=== PATIENT | female | born 1955 | race African-American/Black ===

== ENCOUNTER 2021-07-03 14:29 | Inpatient (IN) ==
[2021-07-03] MEDS ORDERED: 0.9 % Sodium Chloride 1,000 ML IVC ONE (14:31)
[2021-07-03] MEDS ORDERED: Acetaminophen 325 MG TABLET PO ONE (14:54)
[2021-07-03 15:39] LABS: Bacteria,Urine Few per hpf (None-Few); Bilirubin,Urine Negative (Negative); Blood,Urine Large (Negative); Clarity,Urine Ex.Turbid (Clear); Color,Urine Orange (Yellow); Glucose,Urine (UA) >=1000 mg/dL (Normal); Granular Casts,Urine Moderate per lpf (None Seen); Ketones,Urine Negative (Negative); Leukocyte Esterase,Urine Large (Negative); Nitrite,Urine Negative (Negative); Protein,Urine >=300 mg/dL (Neg-Trace); RBC,Urine 15-30 per hpf (0-3); Specific Gravity,Urine 1.018 (1.010-1.025); Urobilinogen,Urine Normal (Normal); WBC,Urine TNTC per hpf (0-3)
[2021-07-03 15:57] LABS: Influenza A PCR Negative (Negative); Influenza B PCR Negative (Negative); Resp. Syncytial Virus PCR Negative (Negative)
[2021-07-03 16:04] LABS: VBG HCO3 21 mEq/L (21-27); VBG PCO2 34 mmHg (41-51); VBG PO2 45 mmHg (25-50)
[2021-07-03 16:05] LABS: Hematocrit 32.6 % (35.3-44.9); Hemoglobin 10.7 g/dL (11.5-15.4); Mean Corpuscular HGB Conc 32.8 g/dL (31.6-35.5); Mean Corpuscular Hemoglobin 27.7 pg (28.0-33.3); Mean Corpuscular Volume 84.5 fL (83.0-100.0); Mean Platelet Volume 11.4 fL (9.4-12.4); Platelet Count 146 K/mcL (140-400); Red Blood Count 3.86 M/mcL (3.82-4.97); Red Cell Distribution Width 12.8 % (11.5-14.5); White Blood Count 14.3 K/mcL (4.3-11.1)
[2021-07-03 16:15] LABS: SARS-CoV-2 by PCR (In House) Negative (Negative)
[2021-07-03 16:26] LABS: Albumin 3.3 g/dL (3.5-5.7); Albumin/Globulin Ratio 0.9 (1.1-2.2); Bilirubin,Direct 0.4 mg/dL (0.0-0.2); Bilirubin,Indirect 0.6 mg/dL (0.0-1.0); Calcium 8.6 mg/dL (8.6-10.3); Globulin 3.8 g/dL (2.4-3.5); Magnesium 1.2 mg/dL (1.6-2.6); Potassium 3.6 mEq/L (3.5-5.1); Total Protein 7.1 g/dL (6.4-8.9)
[2021-07-03 16:40] LABS: Lymphocytes # 1.4 K/mcL (0.6-4.6); Monocytes # 0.9 K/mcL (0.0-1.3); Platelet Estimate Normal (Normal)
[2021-07-03] MEDS: 0.9 % Sodium Chloride 1,000 ML IVC SCH ×3 (17:01→22:02)
[2021-07-03] MEDS ORDERED: Insulin Human Regular 10 UNIT in 0.9 % Sodium Chloride 10 ML IV ONE (17:06)
[2021-07-03] MEDS: cefTRIAXone 1,000 MG in 0.9 % Sodium Chloride Mini Bag 100 ML IVPB ONE ×2 (17:38→22:04)
[2021-07-03] MEDS ORDERED: Piperacillin/Tazobactam 3.375 GM in 0.9 % Sodium Chloride Mini Bag 100 ML IVPB ONE (18:07)
[2021-07-03] MEDS ORDERED: Ondansetron 4 MG/2 ML VIAL IVP PRN (18:26)
[2021-07-03] MEDS ORDERED: Naloxone 0.4 MG/ML INJ IVP PRN (18:26)
[2021-07-03] MEDS ORDERED: Dextrose Gel 15 GM/37.5 ML TUBE PO PRN ×2 (18:31)
[2021-07-03] MEDS ORDERED: *HR* Dextrose 50 % in Water (Syg) 50 ML SYRINGE IVP PRN (18:31)
[2021-07-03] MEDS ORDERED: D5% in Water 1,000 ML IVC PRN (18:31)
[2021-07-03] MEDS ORDERED: cefTRIAXone 1,000 MG in 0.9 % Sodium Chloride Mini Bag 100 ML IVPB ONE (18:36)
[2021-07-03] MEDS ORDERED: Insulin LISPRO 300 UNITS/3 ML VIAL SUBQ SCH ×2 (18:45→21:00)
[2021-07-03 21:08] LABS: Estimated Average Glucose 212 mg/dl
[2021-07-03] MEDS ORDERED: Azithromycin 250 MG TABLET PO SCH (21:45)
[2021-07-03] MEDS: Famotidine 20 MG TABLET PO SCH (22:02)
[2021-07-03] MEDS: Melatonin 3 MG TABLET PO SCH (22:02)
[2021-07-03] MEDS: QUEtiapine Fumarate 100 MG TABLET PO SCH (22:02)
[2021-07-03] MEDS: Perphenazine 8 MG TABLET PO SCH (22:03)
[2021-07-03] MEDS: *HR* Heparin 5,000 UNIT/ML VIAL SQ SCH (22:03)
[2021-07-04] MEDS: Perphenazine 8 MG TABLET PO SCH ×3 (00:03→21:30)
[2021-07-04] MEDS: Insulin DETEMIR 100 UNIT/ML X5UNITS SUBQ SCH ×3 (00:03→21:39)
[2021-07-04 01:58] LABS: Hematocrit 29.2 % (35.3-44.9); Hemoglobin 9.6 g/dL (11.5-15.4); Mean Corpuscular HGB Conc 32.9 g/dL (31.6-35.5); Mean Corpuscular Hemoglobin 27.5 pg (28.0-33.3); Mean Corpuscular Volume 83.7 fL (83.0-100.0); Mean Platelet Volume 11.1 fL (9.4-12.4); Platelet Count 102 K/mcL (140-400); Red Blood Count 3.49 M/mcL (3.82-4.97); Red Cell Distribution Width 12.7 % (11.5-14.5); White Blood Count 12.6 K/mcL (4.3-11.1)
[2021-07-04 02:05] LABS: INR 1.7; Prothrombin Time 18.6 Seconds (9.4-12.1)
[2021-07-04 02:13] LABS: Calcium 7.7 mg/dL (8.6-10.3); Magnesium 1.3 mg/dL (1.6-2.6); Phosphorous 2.5 mg/dL (2.7-4.5); Potassium 3.3 mEq/L (3.5-5.1)
[2021-07-04 02:25] LABS: Anisocytosis 1+ (Not Present); Lymphocytes # 0.5 K/mcL (0.6-4.6); Neutrophils # 11.6 K/mcL (1.6-8.9); Platelet Estimate Slight Decrease (Normal); Toxic Granulation Present (Not Present); Toxic Vacuolation Present (Not Present)
[2021-07-04] MEDS: Calcium Gluconate 1gm/50mL 1 GM/50 ML BAG IVPB SCH ×2 (03:05→06:03)
[2021-07-04 03:11] LABS: Acinetobacter baumannii by PCR Not Detected (Not Detect); Candida albicans by PCR Not Detected (Not Detect); Candida glabrata by PCR Not Detected (Not Detect); Candida krusei by PCR Not Detected (Not Detect); Candida parapsilosis by PCR Not Detected (Not Detect); Candida tropicalis by PCR Not Detected (Not Detect); Enterobacter cloacae Cmplx PCR Not Detected (Not Detect); Enterococcus by PCR Not Detected (Not Detect); Escherichia coli by PCR DETECTED (Not Detect); Klebsiella oxytoca by PCR Not Detected (Not Detect); Klebsiella pneumoniae by PCR Not Detected (Not Detect); Proteus by PCR Not Detected (Not Detect); Pseudomonas aeruginosa by PCR Not Detected (Not Detect); Serratia marcescens by PCR Not Detected (Not Detect); Staphylococcus aureus by PCR Not Detected (Not Detect); Staphylococcus by PCR Not Detected (Not Detect); Streptococcus agalactiae(B)PCR Not Detected (Not Detect); Streptococcus by PCR Not Detected (Not Detect); Streptococcus pneumoniae PCR Not Detected (Not Detect); Streptococcus pyogenes (A) PCR Not Detected (Not Detect); blaKPC Carbapenem-Resist Gene Not Detected (Not Detect)
[2021-07-04] MEDS: *HR* Heparin 5,000 UNIT/ML VIAL SQ SCH ×3 (06:13→22:19)
[2021-07-04] MEDS: 0.9 % Sodium Chloride 1,000 ML IVC SCH ×2 (06:13→15:26)
[2021-07-04 07:53] LABS: Adenovirus F 40/41 PCR Not detected (Not detect); Astrovirus PCR Not detected (Not detect); C.difficile Toxin A/B Gene PCR Not detected (Not detect); Campylobacter by PCR Not detected (Not detect); Cryptosporidium by PCR Not detected (Not detect); Cyclospora cayetanensis PCR Not detected (Not detect); E. coli O157 by PCR Not detected (Not detect); Entamoeba histolytica PCR Not detected (Not detect); Enteroaggregative E.coli(EAEC) Not detected (Not detect); Enteropathogenic E.coli(EPEC) Not detected (Not detect); Enterotoxigenic E.coli (ETEC) Not detected (Not detect); Giardia lamblia PCR Not detected (Not detect); Norovirus GI/GII PCR Not detected (Not detect); Plesiomonas shigelloides PCR Not detected (Not detect); Rotavirus A PCR Not detected (Not detect); Salmonella PCR Not detected (Not detect); Sapovirus PCR Not detected (Not detect); Shig/EnteroinvasiveE coli EIEC Not detected (Not detect); Shigalike tox-prod E coli STEC Not detected (Not detect); Vibrio PCR Not detected (Not detect); Vibrio cholerae PCR Not detected (Not detect); Yersinia enterocolitica PCR Not detected (Not detect)
[2021-07-04] MEDS ORDERED: Magnesium Sulfate 1 GM/102 ML PIGGYBACK IVPB ONE (08:21)
[2021-07-04] MEDS ORDERED: Potassium Chloride Elixir 20 MEQ/15 ML UDC PO ONE (08:22)
[2021-07-04] MEDS: Lactobacillus 1 EACH CAP.SPRINK PO SCH ×2 (09:14→21:30)
[2021-07-04] MEDS: Loratadine 10 MG TABLET PO SCH (09:14)
[2021-07-04] MEDS: Insulin LISPRO 300 UNITS/3 ML VIAL SUBQ SCH ×3 (09:15→18:03)
[2021-07-04] MEDS: cefTRIAXone 2,000 MG in 0.9 % Sodium Chloride Mini Bag 100 ML IVPB SCH (09:18)
[2021-07-04] MEDS: SODIUM BICARBONATE IVC SCH ×2 (10:14→22:20)
[2021-07-04] MEDS: SODIUM CHLORIDE 0.9% IVC SCH ×2 (10:14→22:20)
[2021-07-04 12:08] LABS: Uric Acid 6.5 mg/dL (2.3-7.6)
[2021-07-04] MEDS ORDERED: *HR* LORazepam 2 MG/ML VIAL IVP ONE (14:53)
[2021-07-04] MEDS: Acetaminophen 325 MG TABLET PO PRN (15:16)
[2021-07-04] MEDS ORDERED: Acetaminophen IV 1,000 MG/100 ML BAG IVPB ONE (17:41)
[2021-07-04 19:05] LABS: Calcium 7.6 mg/dL (8.6-10.3); Magnesium 1.5 mg/dL (1.6-2.6); Potassium 3.4 mEq/L (3.5-5.1)
[2021-07-04 21:02] LABS: Amorphous Sediment,Urine Few per hpf (None-Few); Bacteria,Urine Few per hpf (None-Few); Bilirubin,Urine Negative (Negative); Blood,Urine Large (Negative); Budding Yeast,Urine Many per hpf (None Seen); Clarity,Urine Turbid (Clear); Color,Urine Yellow (Yellow); Glucose,Urine (UA) 30 mg/dL (Normal); Ketones,Urine Negative (Negative); Leukocyte Esterase,Urine Large (Negative); Mucus,Urine Few per lpf (None-Few); Nitrite,Urine Negative (Negative); PH,Urine 5.5 pH Units (5.0-8.0); Protein,Urine 100 mg/dL (Neg-Trace); Specific Gravity,Urine 1.012 (1.010-1.025); Squamous Epithelial Cell,Urine Few per hpf (None-Few); Urobilinogen,Urine Normal (Normal); WBC,Urine 50-100 per hpf (0-3)
[2021-07-04] MEDS: Melatonin 3 MG TABLET PO SCH (21:30)
[2021-07-04] MEDS: Famotidine 20 MG TABLET PO SCH (21:30)
[2021-07-04] MEDS: QUEtiapine Fumarate 100 MG TABLET PO SCH (21:30)
[2021-07-04 21:45] LABS: Sodium, Urine 27.1 mEq/L
[2021-07-05 02:30] LABS: Calcium 7.7 mg/dL (8.6-10.3); Magnesium 1.7 mg/dL (1.6-2.6); Phosphorous 2.5 mg/dL (2.7-4.5); Potassium 3.4 mEq/L (3.5-5.1)
[2021-07-05 04:24] LABS: Eosinophils % 1.6 %; Nucleated Red Blood Cells 0.2 /100 WBC (0)
[2021-07-05 04:26] LABS: Basophils % 0.2 %; Eosinophils # 0.2 K/mcL (0.0-0.6); Hematocrit 29.4 % (35.3-44.9); Hemoglobin 9.8 g/dL (11.5-15.4); Immature Granulocytes % 5.8 % (0-4); Immature Platelets 6.4 % (1.1-6.1); Lymphocytes # 1.1 K/mcL (0.6-4.6); Lymphocytes % 8.8 %; Mean Corpuscular HGB Conc 33.3 g/dL (31.6-35.5); Mean Corpuscular Hemoglobin 27.5 pg (28.0-33.3); Mean Corpuscular Volume 82.6 fL (83.0-100.0); Mean Platelet Volume 11.2 fL (9.4-12.4); Monocytes # 1.1 K/mcL (0.0-1.3); Monocytes % 9.1 %; Neutrophils # 9.2 K/mcL (1.6-8.9); Red Blood Count 3.56 M/mcL (3.82-4.97); Red Cell Distribution Width 13.2 % (11.5-14.5); Segmented Neutrophils % 74.5 %; White Blood Count 12.3 K/mcL (4.3-11.1)
[2021-07-05 04:44] LABS: Platelet Count 85 K/mcL (140-400); Platelet Estimate Decreased (Normal)
[2021-07-05] MEDS: *HR* Heparin 5,000 UNIT/ML VIAL SQ SCH ×3 (05:50→23:44)
[2021-07-05] MEDS: cefTRIAXone 2,000 MG in 0.9 % Sodium Chloride Mini Bag 100 ML IVPB SCH (09:05)
[2021-07-05] MEDS: Lactobacillus 1 EACH CAP.SPRINK PO SCH ×2 (09:09→20:00)
[2021-07-05] MEDS: Loratadine 10 MG TABLET PO SCH (09:09)
[2021-07-05] MEDS: Perphenazine 8 MG TABLET PO SCH ×2 (09:09→20:00)
[2021-07-05] MEDS: Insulin LISPRO 300 UNITS/3 ML VIAL SUBQ SCH ×3 (09:12→17:02)
[2021-07-05] MEDS: Insulin DETEMIR 100 UNIT/ML X5UNITS SUBQ SCH ×2 (09:12→20:01)
[2021-07-05] MEDS: SODIUM CHLORIDE 0.9% IVC SCH ×3 (10:24→22:25)
[2021-07-05] MEDS: SODIUM BICARBONATE IVC SCH ×3 (10:24→22:25)
[2021-07-05] MEDS ORDERED: Potassium Phosphate 44 MEQ in 0.9 % Sodium Chloride 250 ML IVPB ONE (11:50)
[2021-07-05] MEDS: Acetaminophen 325 MG TABLET PO PRN (19:54)
[2021-07-05] MEDS: QUEtiapine Fumarate 100 MG TABLET PO SCH (20:00)
[2021-07-05] MEDS: Melatonin 3 MG TABLET PO SCH (20:00)
[2021-07-05] MEDS: Famotidine 20 MG TABLET PO SCH (20:01)
[2021-07-06 00:55] LABS: Hemoglobin 8.6 g/dL (11.5-15.4); Mean Corpuscular Hemoglobin 27.7 pg (28.0-33.3); Nucleated Red Blood Cells 0.3 /100 WBC (0); Red Cell Distribution Width 13.4 % (11.5-14.5)
[2021-07-06 00:57] LABS: Basophils % 0.3 %; Eosinophils # 0.2 K/mcL (0.0-0.6); Eosinophils % 1.5 %; Hematocrit 25.4 % (35.3-44.9); Immature Granulocytes % 4.8 % (0-4); Immature Platelets 4.9 % (1.1-6.1); Lymphocytes # 1.9 K/mcL (0.6-4.6); Lymphocytes % 15.6 %; Mean Corpuscular HGB Conc 33.9 g/dL (31.6-35.5); Mean Corpuscular Volume 81.7 fL (83.0-100.0); Mean Platelet Volume 11.1 fL (9.4-12.4); Monocytes # 1.4 K/mcL (0.0-1.3); Monocytes % 11.3 %; Red Blood Count 3.11 M/mcL (3.82-4.97); Segmented Neutrophils % 66.5 %
[2021-07-06 00:58] LABS: Platelet Count 93 K/mcL (140-400)
[2021-07-06 01:14] LABS: Potassium 3.6 mEq/L (3.5-5.1)
[2021-07-06 01:15] LABS: Calcium 7.6 mg/dL (8.6-10.3); Magnesium 1.7 mg/dL (1.6-2.6); Phosphorous 4.4 mg/dL (2.7-4.5)
[2021-07-06 01:21] LABS: Platelet Estimate Decreased (Normal); Toxic Granulation Present (Not Present)
[2021-07-06] MEDS: *HR* Heparin 5,000 UNIT/ML VIAL SQ SCH ×3 (05:05→20:44)
[2021-07-06] MEDS: cefTRIAXone 2,000 MG in 0.9 % Sodium Chloride Mini Bag 100 ML IVPB SCH (08:42)
[2021-07-06] MEDS: Perphenazine 8 MG TABLET PO SCH ×2 (08:45→20:43)
[2021-07-06] MEDS: Loratadine 10 MG TABLET PO SCH (08:45)
[2021-07-06] MEDS: Lactobacillus 1 EACH CAP.SPRINK PO SCH ×2 (08:45→20:42)
[2021-07-06] MEDS: Insulin DETEMIR 100 UNIT/ML X5UNITS SUBQ SCH ×2 (08:52→20:43)
[2021-07-06] MEDS: Insulin LISPRO 300 UNITS/3 ML VIAL SUBQ SCH ×3 (08:53→17:19)
[2021-07-06] MEDS: SODIUM BICARBONATE IVC SCH ×2 (10:44→22:21)
[2021-07-06] MEDS: SODIUM CHLORIDE 0.9% IVC SCH ×2 (10:44→22:21)
[2021-07-06] MEDS: Famotidine 20 MG TABLET PO SCH (20:42)
[2021-07-06] MEDS: QUEtiapine Fumarate 100 MG TABLET PO SCH (20:42)
[2021-07-06] MEDS: Melatonin 3 MG TABLET PO SCH (20:43)
[2021-07-07 03:44] LABS: Basophils # 0.1 K/mcL (0.0-0.2); Basophils % 0.5 %; Eosinophils # 0.3 K/mcL (0.0-0.6); Eosinophils % 2.2 %; Hematocrit 25.2 % (35.3-44.9); Hemoglobin 8.5 g/dL (11.5-15.4); Immature Granulocytes % 4.6 % (0-4); Lymphocytes # 2.4 K/mcL (0.6-4.6); Lymphocytes % 19.5 %; Mean Corpuscular HGB Conc 33.7 g/dL (31.6-35.5); Mean Corpuscular Volume 82.9 fL (83.0-100.0); Mean Platelet Volume 11.6 fL (9.4-12.4); Monocytes # 1.2 K/mcL (0.0-1.3); Monocytes % 10.1 %; Neutrophils # 7.7 K/mcL (1.6-8.9); Platelet Count 98 K/mcL (140-400); Red Blood Count 3.04 M/mcL (3.82-4.97); Red Cell Distribution Width 13.8 % (11.5-14.5); Segmented Neutrophils % 63.1 %; White Blood Count 12.2 K/mcL (4.3-11.1)
[2021-07-07 04:12] LABS: Platelet Estimate Slight Decrease (Normal)
[2021-07-07 04:17] LABS: Calcium 7.5 mg/dL (8.6-10.3); Magnesium 1.8 mg/dL (1.6-2.6); Phosphorous 3.2 mg/dL (2.7-4.5); Potassium 3.3 mEq/L (3.5-5.1)
[2021-07-07] MEDS: *HR* Heparin 5,000 UNIT/ML VIAL SQ SCH ×3 (06:43→22:52)
[2021-07-07] MEDS ORDERED: 0.9 % Sodium Chloride 250 ML IVC PRN (07:27)
[2021-07-07] MEDS ORDERED: 0.9 % Sodium Chloride 1,000 ML PRIME SCH (07:30)
[2021-07-07 09:49] LABS: Hepatitis B Surface Antibody < 3.10 mIU/mL
[2021-07-07] MEDS: Insulin LISPRO 300 UNITS/3 ML VIAL SUBQ SCH ×3 (09:58→17:53)
[2021-07-07] MEDS: Loratadine 10 MG TABLET PO SCH (09:59)
[2021-07-07] MEDS: cefTRIAXone 2,000 MG in 0.9 % Sodium Chloride Mini Bag 100 ML IVPB SCH (09:59)
[2021-07-07] MEDS: Lactobacillus 1 EACH CAP.SPRINK PO SCH ×2 (09:59→22:48)
[2021-07-07 10:00] LABS: Hepatitis B Surface Antigen Nonreactive (Nonreactive)
[2021-07-07] MEDS: Insulin DETEMIR 100 UNIT/ML X5UNITS SUBQ SCH ×2 (10:13→22:57)
[2021-07-07] MEDS ORDERED: *HR* Heparin 5,000 UNIT/ML VIAL ONE (11:32)
[2021-07-07] MEDS: Perphenazine 8 MG TABLET PO SCH ×2 (13:55→22:46)
[2021-07-07] MEDS: Ergocalciferol (VIT D2) 50,000 UNIT (1.25MG) CAP PO SCH (13:56)
[2021-07-07] MEDS: SODIUM CHLORIDE 0.9% IVC SCH (16:26)
[2021-07-07] MEDS: SODIUM BICARBONATE IVC SCH (16:26)
[2021-07-07] MEDS: QUEtiapine Fumarate 100 MG TABLET PO SCH (22:47)
[2021-07-07] MEDS: Melatonin 3 MG TABLET PO SCH (22:47)
[2021-07-07] MEDS: Famotidine 20 MG TABLET PO SCH (22:48)
[2021-07-08] MEDS: SODIUM BICARBONATE IVC SCH ×2 (04:04→04:19)
[2021-07-08] MEDS: SODIUM CHLORIDE 0.9% IVC SCH ×2 (04:04→04:19)
[2021-07-08] MEDS: *HR* Heparin 5,000 UNIT/ML VIAL SQ SCH ×3 (04:43→21:10)
[2021-07-08 05:56] LABS: Basophils # 0.1 K/mcL (0.0-0.2); Basophils % 0.4 %; Eosinophils # 0.4 K/mcL (0.0-0.6); Eosinophils % 2.2 %; Hematocrit 23.6 % (35.3-44.9); Hemoglobin 8.1 g/dL (11.5-15.4); Immature Granulocytes % 5.7 % (0-4); Lymphocytes # 2.7 K/mcL (0.6-4.6); Lymphocytes % 16.9 %; Mean Corpuscular HGB Conc 34.3 g/dL (31.6-35.5); Mean Corpuscular Hemoglobin 28.3 pg (28.0-33.3); Mean Corpuscular Volume 82.5 fL (83.0-100.0); Monocytes # 1.1 K/mcL (0.0-1.3); Monocytes % 6.9 %; Neutrophils # 10.7 K/mcL (1.6-8.9); Platelet Count 134 K/mcL (140-400); Red Blood Count 2.86 M/mcL (3.82-4.97); Red Cell Distribution Width 13.8 % (11.5-14.5); Segmented Neutrophils % 67.9 %; White Blood Count 15.7 K/mcL (4.3-11.1)
[2021-07-08 06:17] LABS: Platelet Estimate Slight Decrease (Normal)
[2021-07-08 06:20] LABS: Calcium 7.8 mg/dL (8.6-10.3); Magnesium 1.6 mg/dL (1.6-2.6); Phosphorous 2.8 mg/dL (2.7-4.5); Potassium 3.4 mEq/L (3.5-5.1)
[2021-07-08] MEDS: Perphenazine 8 MG TABLET PO SCH ×2 (08:27→21:08)
[2021-07-08] MEDS: Lactobacillus 1 EACH CAP.SPRINK PO SCH ×2 (08:28→21:09)
[2021-07-08] MEDS: Loratadine 10 MG TABLET PO SCH (08:28)
[2021-07-08] MEDS: cefTRIAXone 2,000 MG in 0.9 % Sodium Chloride Mini Bag 100 ML IVPB SCH (08:28)
[2021-07-08] MEDS: Insulin DETEMIR 100 UNIT/ML X5UNITS SUBQ SCH ×2 (08:34→21:08)
[2021-07-08] MEDS: Insulin LISPRO 300 UNITS/3 ML VIAL SUBQ SCH ×3 (08:35→17:39)
[2021-07-08] MEDS: Famotidine 20 MG TABLET PO SCH (21:08)
[2021-07-08] MEDS: QUEtiapine Fumarate 100 MG TABLET PO SCH (21:09)
[2021-07-08] MEDS: Melatonin 3 MG TABLET PO SCH (21:09)
[2021-07-09 05:02] LABS: Basophils % 0.5 %; Red Cell Distribution Width 14.6 % (11.5-14.5)
[2021-07-09 05:04] LABS: Basophils # 0.1 K/mcL (0.0-0.2); Eosinophils # 0.2 K/mcL (0.0-0.6); Hematocrit 25.8 % (35.3-44.9); Hemoglobin 8.1 g/dL (11.5-15.4); Immature Granulocytes % 3.4 % (0-4); Immature Platelets 4.9 % (1.1-6.1); Lymphocytes # 1.9 K/mcL (0.6-4.6); Lymphocytes % 15.2 %; Mean Corpuscular HGB Conc 31.4 g/dL (31.6-35.5); Mean Corpuscular Hemoglobin 27.7 pg (28.0-33.3); Mean Corpuscular Volume 88.4 fL (83.0-100.0); Mean Platelet Volume 11.9 fL (9.4-12.4); Monocytes # 0.7 K/mcL (0.0-1.3); Monocytes % 5.6 %; Neutrophils # 8.9 K/mcL (1.6-8.9); Platelet Count 92 K/mcL (140-400); Red Blood Count 2.92 M/mcL (3.82-4.97); Segmented Neutrophils % 73.3 %; White Blood Count 12.2 K/mcL (4.3-11.1)
[2021-07-09 05:24] LABS: Calcium 7.7 mg/dL (8.6-10.3); Magnesium 1.7 mg/dL (1.6-2.6); Phosphorous 2.7 mg/dL (2.7-4.5); Potassium 3.9 mEq/L (3.5-5.1)
[2021-07-09] MEDS: *HR* Heparin 5,000 UNIT/ML VIAL SQ SCH ×3 (05:54→20:44)
[2021-07-09] MEDS: Insulin LISPRO 300 UNITS/3 ML VIAL SUBQ SCH ×3 (08:09→17:04)
[2021-07-09] MEDS: Perphenazine 8 MG TABLET PO SCH ×2 (08:09→20:44)
[2021-07-09] MEDS: Lactobacillus 1 EACH CAP.SPRINK PO SCH ×2 (08:09→20:43)
[2021-07-09] MEDS: Loratadine 10 MG TABLET PO SCH (08:09)
[2021-07-09] MEDS: Insulin DETEMIR 100 UNIT/ML X5UNITS SUBQ SCH ×2 (08:14→20:56)
[2021-07-09] MEDS: cefTRIAXone 2,000 MG in 0.9 % Sodium Chloride Mini Bag 100 ML IVPB SCH (08:16)
[2021-07-09] MEDS: Nystatin Cream 15 GM TUBE TP SCH ×2 (14:31→20:45)
[2021-07-09 16:10] LABS: ABG Base Excess 2 mEq/L (-2 to 3); ABG HCO3 26 mEq/L (21-27); ABG Oxygen Saturation 93 % (95-98); ABG PCO2 39 mmHg (35-45); ABG PH 7.44 pH Units (7.32-7.45); ABG PO2 64 mmHg (85-104); ABG TCO2 28 mEq/L (20-26)
[2021-07-09] MEDS: QUEtiapine Fumarate 100 MG TABLET PO SCH (20:43)
[2021-07-09] MEDS: Acetaminophen 325 MG TABLET PO PRN (20:43)
[2021-07-09] MEDS: Melatonin 3 MG TABLET PO SCH (20:43)
[2021-07-09] MEDS: Famotidine 20 MG TABLET PO SCH (20:44)
[2021-07-10 02:09] LABS: Basophils # 0.1 K/mcL (0.0-0.2); Basophils % 0.4 %; Eosinophils # 0.3 K/mcL (0.0-0.6); Eosinophils % 1.8 %; Hematocrit 24.3 % (35.3-44.9); Hemoglobin 7.8 g/dL (11.5-15.4); Immature Granulocytes % 5.1 % (0-4); Lymphocytes # 1.7 K/mcL (0.6-4.6); Mean Corpuscular HGB Conc 32.1 g/dL (31.6-35.5); Mean Corpuscular Hemoglobin 27.5 pg (28.0-33.3); Mean Corpuscular Volume 85.6 fL (83.0-100.0); Mean Platelet Volume 10.6 fL (9.4-12.4); Monocytes # 0.7 K/mcL (0.0-1.3); Monocytes % 4.9 %; Neutrophils # 10.5 K/mcL (1.6-8.9); Platelet Count 191 K/mcL (140-400); Red Blood Count 2.84 M/mcL (3.82-4.97); Red Cell Distribution Width 14.2 % (11.5-14.5); Segmented Neutrophils % 75.8 %; White Blood Count 13.9 K/mcL (4.3-11.1)
[2021-07-10 02:27] LABS: Platelet Estimate Normal (Normal)
[2021-07-10 02:29] LABS: Calcium 7.8 mg/dL (8.6-10.3); Magnesium 1.9 mg/dL (1.6-2.6); Phosphorous 2.8 mg/dL (2.7-4.5); Potassium 4.3 mEq/L (3.5-5.1)
[2021-07-10] MEDS: *HR* Heparin 5,000 UNIT/ML VIAL SQ SCH ×3 (05:41→20:44)
[2021-07-10] MEDS: Lactobacillus 1 EACH CAP.SPRINK PO SCH ×2 (07:42→20:58)
[2021-07-10] MEDS: Perphenazine 8 MG TABLET PO SCH ×2 (07:42→20:46)
[2021-07-10] MEDS: Loratadine 10 MG TABLET PO SCH (07:42)
[2021-07-10] MEDS: Insulin LISPRO 300 UNITS/3 ML VIAL SUBQ SCH ×4 (07:43→16:08)
[2021-07-10] MEDS: cefTRIAXone 2,000 MG in 0.9 % Sodium Chloride Mini Bag 100 ML IVPB SCH (07:43)
[2021-07-10] MEDS: Nystatin Cream 15 GM TUBE TP SCH ×3 (08:06→20:58)
[2021-07-10] MEDS: Insulin DETEMIR 100 UNIT/ML X5UNITS SUBQ SCH ×2 (08:06→20:46)
[2021-07-10] MEDS: Ipratropium/Albuterol Neb 3 ML IH PRN ×2 (10:51→17:44)
[2021-07-10] MEDS: NIFEdipine XL (24 HR) 60 MG TAB.ER.24 PO SCH (12:24)
[2021-07-10 17:12] LABS: Iron 15 mcg/dL (50-170)
[2021-07-10 17:35] LABS: Folate 8.9 ng/mL (3.0-16.0)
[2021-07-10] MEDS: Piperacillin/Tazobactam 3.375 GM in 0.9 % Sodium Chloride Mini Bag 100 ML IVPB SCH (17:35)
[2021-07-10 17:42] LABS: Ferritin > 1500 ng/mL (10-120)
[2021-07-10] MEDS: Melatonin 3 MG TABLET PO SCH (20:45)
[2021-07-10] MEDS: Famotidine 20 MG TABLET PO SCH (20:45)
[2021-07-10] MEDS: QUEtiapine Fumarate 100 MG TABLET PO SCH (20:45)
[2021-07-11 01:37] LABS: Basophils % 0.4 %; Eosinophils # 0.2 K/mcL (0.0-0.6); Eosinophils % 1.5 %; Hematocrit 21.7 % (35.3-44.9); Hemoglobin 6.9 g/dL (11.5-15.4); Immature Granulocytes % 3.9 % (0-4); Lymphocytes # 1.6 K/mcL (0.6-4.6); Lymphocytes % 14.1 %; Mean Corpuscular HGB Conc 31.8 g/dL (31.6-35.5); Mean Corpuscular Hemoglobin 27.2 pg (28.0-33.3); Mean Corpuscular Volume 85.4 fL (83.0-100.0); Mean Platelet Volume 10.3 fL (9.4-12.4); Monocytes # 0.6 K/mcL (0.0-1.3); Monocytes % 5.3 %; Neutrophils # 8.5 K/mcL (1.6-8.9); Platelet Count 218 K/mcL (140-400); Red Blood Count 2.54 M/mcL (3.82-4.97); Red Cell Distribution Width 14.5 % (11.5-14.5); Segmented Neutrophils % 74.8 %; White Blood Count 11.4 K/mcL (4.3-11.1)
[2021-07-11 01:52] LABS: Calcium 7.9 mg/dL (8.6-10.3); Magnesium 1.8 mg/dL (1.6-2.6); Phosphorous 3.3 mg/dL (2.7-4.5); Potassium 4.4 mEq/L (3.5-5.1)
[2021-07-11] MEDS: Piperacillin/Tazobactam 3.375 GM in 0.9 % Sodium Chloride Mini Bag 100 ML IVPB SCH ×2 (05:09→17:07)
[2021-07-11] MEDS: *HR* Heparin 5,000 UNIT/ML VIAL SQ SCH (05:10)
[2021-07-11] MEDS: Ipratropium/Albuterol Neb 3 ML IH PRN ×2 (07:33→11:30)
[2021-07-11] MEDS: Lactobacillus 1 EACH CAP.SPRINK PO SCH ×2 (09:12→21:17)
[2021-07-11] MEDS: Perphenazine 8 MG TABLET PO SCH ×2 (09:12→21:17)
[2021-07-11] MEDS: Loratadine 10 MG TABLET PO SCH (09:12)
[2021-07-11] MEDS: NIFEdipine XL (24 HR) 60 MG TAB.ER.24 PO SCH (09:13)
[2021-07-11] MEDS: Insulin DETEMIR 100 UNIT/ML X5UNITS SUBQ SCH ×2 (09:13→21:17)
[2021-07-11] MEDS: Insulin LISPRO 300 UNITS/3 ML VIAL SUBQ SCH ×6 (09:14→17:06)
[2021-07-11] MEDS: Nystatin Cream 15 GM TUBE TP SCH ×3 (09:26→21:17)
[2021-07-11] MEDS ORDERED: 0.9 % Sodium Chloride 250 ML ONE (10:42)
[2021-07-11 18:26] LABS: Hematocrit 31.2 % (35.3-44.9)
[2021-07-11 18:29] LABS: Hemoglobin 10.3 g/dL (11.5-15.4)
[2021-07-11] MEDS: QUEtiapine Fumarate 100 MG TABLET PO SCH (21:17)
[2021-07-11] MEDS: Famotidine 20 MG TABLET PO SCH (21:17)
[2021-07-11] MEDS: Melatonin 3 MG TABLET PO SCH (21:17)
[2021-07-12] MEDS: Piperacillin/Tazobactam 3.375 GM in 0.9 % Sodium Chloride Mini Bag 100 ML IVPB SCH ×2 (05:54→17:08)
[2021-07-12] MEDS: Perphenazine 8 MG TABLET PO SCH ×2 (08:11→21:39)
[2021-07-12] MEDS: Insulin LISPRO 300 UNITS/3 ML VIAL SUBQ SCH ×7 (08:11→17:12)
[2021-07-12] MEDS: Lactobacillus 1 EACH CAP.SPRINK PO SCH ×2 (08:12→21:38)
[2021-07-12] MEDS: Loratadine 10 MG TABLET PO SCH (08:12)
[2021-07-12] MEDS: NIFEdipine XL (24 HR) 60 MG TAB.ER.24 PO SCH (08:13)
[2021-07-12] MEDS: Nystatin Cream 15 GM TUBE TP SCH ×3 (08:22→21:40)
[2021-07-12] MEDS: Insulin DETEMIR 100 UNIT/ML X5UNITS SUBQ SCH ×2 (08:27→21:40)
[2021-07-12 12:10] LABS: Basophils # 0.1 K/mcL (0.0-0.2); Basophils % 0.5 %; Eosinophils # 0.4 K/mcL (0.0-0.6); Eosinophils % 2.9 %; Hematocrit 29.9 % (35.3-44.9); Hemoglobin 9.7 g/dL (11.5-15.4); Immature Granulocytes % 1.9 % (0-4); Lymphocytes # 1.8 K/mcL (0.6-4.6); Lymphocytes % 14.4 %; Mean Corpuscular HGB Conc 32.4 g/dL (31.6-35.5); Mean Corpuscular Hemoglobin 28.1 pg (28.0-33.3); Mean Corpuscular Volume 86.7 fL (83.0-100.0); Monocytes # 0.9 K/mcL (0.0-1.3); Monocytes % 6.9 %; Platelet Count 295 K/mcL (140-400); Red Blood Count 3.45 M/mcL (3.82-4.97); Red Cell Distribution Width 14.7 % (11.5-14.5); Segmented Neutrophils % 73.4 %; White Blood Count 12.3 K/mcL (4.3-11.1)
[2021-07-12 12:30] LABS: Calcium 8.5 mg/dL (8.6-10.3); Magnesium 1.9 mg/dL (1.6-2.6); Phosphorous 4.3 mg/dL (2.7-4.5); Potassium 4.6 mEq/L (3.5-5.1)
[2021-07-12] MEDS ORDERED: Isovue-370 500 ML BOTTLE IVP ONE (21:26)
[2021-07-12] MEDS: Famotidine 20 MG TABLET PO SCH (21:38)
[2021-07-12] MEDS: Acetaminophen 325 MG TABLET PO PRN (21:38)
[2021-07-12] MEDS: Melatonin 3 MG TABLET PO SCH (21:39)
[2021-07-12] MEDS: QUEtiapine Fumarate 100 MG TABLET PO SCH (21:39)
[2021-07-13 03:37] LABS: Hematocrit 27.6 % (35.3-44.9); Mean Corpuscular HGB Conc 32.6 g/dL (31.6-35.5); Mean Corpuscular Hemoglobin 28.2 pg (28.0-33.3); Mean Corpuscular Volume 86.5 fL (83.0-100.0); Mean Platelet Volume 10.6 fL (9.4-12.4); Platelet Count 248 K/mcL (140-400); Red Blood Count 3.19 M/mcL (3.82-4.97); Red Cell Distribution Width 14.7 % (11.5-14.5); White Blood Count 11.3 K/mcL (4.3-11.1)
[2021-07-13 03:50] LABS: Calcium 8.1 mg/dL (8.6-10.3); Potassium 4.6 mEq/L (3.5-5.1)
[2021-07-13] MEDS: Piperacillin/Tazobactam 3.375 GM in 0.9 % Sodium Chloride Mini Bag 100 ML IVPB SCH ×2 (05:07→17:02)
[2021-07-13] MEDS: Insulin LISPRO 300 UNITS/3 ML VIAL SUBQ SCH ×6 (08:52→17:05)
[2021-07-13] MEDS: Loratadine 10 MG TABLET PO SCH (08:54)
[2021-07-13] MEDS: NIFEdipine XL (24 HR) 60 MG TAB.ER.24 PO SCH (08:54)
[2021-07-13] MEDS: Lactobacillus 1 EACH CAP.SPRINK PO SCH ×2 (08:54→20:07)
[2021-07-13] MEDS: Perphenazine 8 MG TABLET PO SCH ×2 (08:55→20:09)
[2021-07-13] MEDS: Insulin DETEMIR 100 UNIT/ML X5UNITS SUBQ SCH ×2 (08:55→20:09)
[2021-07-13] MEDS: Nystatin Cream 15 GM TUBE TP SCH ×3 (09:01→20:11)
[2021-07-13] MEDS: Melatonin 3 MG TABLET PO SCH (20:08)
[2021-07-13] MEDS: QUEtiapine Fumarate 100 MG TABLET PO SCH (20:08)
[2021-07-13] MEDS: Famotidine 20 MG TABLET PO SCH (20:08)
[2021-07-14] MEDS: Piperacillin/Tazobactam 3.375 GM in 0.9 % Sodium Chloride Mini Bag 100 ML IVPB SCH ×2 (05:29→17:04)
[2021-07-14 07:25] LABS: Basophils # 0.1 K/mcL (0.0-0.2); Basophils % 0.4 %; Eosinophils # 0.3 K/mcL (0.0-0.6); Eosinophils % 2.7 %; Hematocrit 28.9 % (35.3-44.9); Hemoglobin 9.4 g/dL (11.5-15.4); Lymphocytes # 2.7 K/mcL (0.6-4.6); Lymphocytes % 23.6 %; Mean Corpuscular HGB Conc 32.5 g/dL (31.6-35.5); Mean Platelet Volume 10.1 fL (9.4-12.4); Monocytes # 0.9 K/mcL (0.0-1.3); Monocytes % 7.4 %; Neutrophils # 7.4 K/mcL (1.6-8.9); Platelet Count 352 K/mcL (140-400); Red Blood Count 3.36 M/mcL (3.82-4.97); Red Cell Distribution Width 14.6 % (11.5-14.5); Segmented Neutrophils % 64.9 %; White Blood Count 11.5 K/mcL (4.3-11.1)
[2021-07-14 07:36] LABS: Albumin 2.6 g/dL (3.5-5.7); Albumin/Globulin Ratio 0.7 (1.1-2.2); Bilirubin,Total 0.6 mg/dL (0.3-1.0); Calcium 8.5 mg/dL (8.6-10.3); Globulin 3.7 g/dL (2.4-3.5); Total Protein 6.3 g/dL (6.4-8.9)
[2021-07-14] MEDS: Loratadine 10 MG TABLET PO SCH (09:26)
[2021-07-14] MEDS: Lactobacillus 1 EACH CAP.SPRINK PO SCH ×2 (09:26→22:30)
[2021-07-14] MEDS: Perphenazine 8 MG TABLET PO SCH ×2 (09:26→22:29)
[2021-07-14] MEDS: NIFEdipine XL (24 HR) 60 MG TAB.ER.24 PO SCH (09:26)
[2021-07-14] MEDS: Insulin LISPRO 300 UNITS/3 ML VIAL SUBQ SCH ×6 (09:28→16:59)
[2021-07-14] MEDS: Nystatin Cream 15 GM TUBE TP SCH ×3 (09:34→22:31)
[2021-07-14] MEDS: Insulin DETEMIR 100 UNIT/ML X5UNITS SUBQ SCH ×2 (09:34→22:37)
[2021-07-14] MEDS: Ergocalciferol (VIT D2) 50,000 UNIT (1.25MG) CAP PO SCH (14:22)
[2021-07-14 14:25] LABS: % Iron Saturation 7 % (15-50); Transferrin 155 mg/dL (200-400)
[2021-07-14] MEDS: QUEtiapine Fumarate 100 MG TABLET PO SCH (22:28)
[2021-07-14] MEDS: Melatonin 3 MG TABLET PO SCH (22:29)
[2021-07-14] MEDS: Famotidine 20 MG TABLET PO SCH (22:29)
[2021-07-15] MEDS: Piperacillin/Tazobactam 3.375 GM in 0.9 % Sodium Chloride Mini Bag 100 ML IVPB SCH ×2 (05:23→17:41)
[2021-07-15 09:13] LABS: Calcium 8.7 mg/dL (8.6-10.3); Potassium 4.7 mEq/L (3.5-5.1)
[2021-07-15] MEDS: NIFEdipine XL (24 HR) 60 MG TAB.ER.24 PO SCH (10:37)
[2021-07-15] MEDS: Lactobacillus 1 EACH CAP.SPRINK PO SCH (10:37)
[2021-07-15] MEDS: Perphenazine 8 MG TABLET PO SCH (10:37)
[2021-07-15] MEDS: Loratadine 10 MG TABLET PO SCH (10:37)
[2021-07-15] MEDS: Nystatin Cream 15 GM TUBE TP SCH ×2 (10:38→17:39)
[2021-07-15] MEDS: Insulin LISPRO 300 UNITS/3 ML VIAL SUBQ SCH ×6 (10:38→17:40)
[2021-07-15] MEDS: Insulin DETEMIR 100 UNIT/ML X5UNITS SUBQ SCH (10:40)
[2021-07-15 15:01] VITALS: BP 177/96; PULSE 83; TEMP 97.6; O2SAT 94
== END 2021-07-15 18:18 | disposition home or self-care (01) | DRG 720 ==
LOC: EMEROOARM 14:29 → 3BNU 14:29 → SUATTDRO 18:41 → 3BNU 19:42
PROVIDERS: ADMIT Pharmacist; ATTEND Internal Medicine